=== PATIENT | male | born 1950 | race Two or more races ===

== ENCOUNTER 2017-08-07 11:51 | Outpatient (CLI) | payer OTHER | END 2017-08-07 13:12 | disposition home or self-care (01) | LOC: SONOGRAMA 11:51 | DX: M25.552 Pain in left hip (principal) ==

== ENCOUNTER 2018-06-13 16:26 | Outpatient (CLI) | payer OTHER | END 2018-06-13 18:00 | disposition home or self-care (01) | LOC: RAD 16:26 | DX: S92.302A Fracture of unspecified metatarsal bone(s), left foot, initial encounter for closed fracture (principal) ==

== ENCOUNTER 2018-07-02 11:12 | Outpatient (CLI) | payer OTHER | END 2018-07-02 14:59 | disposition home or self-care (01) | LOC: RAD 11:12 | DX: S92.325A Nondisplaced fracture of second metatarsal bone, left foot, initial encounter for closed fracture (principal) ==

== ENCOUNTER 2018-07-28 08:42 | Outpatient (CLI) | payer OTHER | END 2018-07-28 08:46 | disposition home or self-care (01) | LOC: RAD 08:42 | DX: S92.325A Nondisplaced fracture of second metatarsal bone, left foot, initial encounter for closed fracture (principal) ==

== ENCOUNTER 2018-10-17 11:33 | Emergency (ER) | payer OTHER ==
[~2018-10-17] VITALS: Ht 182.9 cm; Wt 85.3 kg
[2018-10-17] MEDS ORDERED: COZAAR100 MG (11:54)
[2018-10-17] MEDS ORDERED: augmentin PO (12:37)
== END 2018-10-17 13:04 | disposition home or self-care (01) ==
LOC: ER 11:33
DX: S61.221A Laceration with foreign body of left index finger without damage to nail, initial encounter (principal); W27.2XXA Contact with scissors, initial encounter; Y93.89 Activity, other specified; Y92.89 Other specified places as the place of occurrence of the external cause; Y99.8 Other external cause status

== ENCOUNTER 2018-10-24 09:34 | Emergency (ER) | payer OTHER ==
[~2018-10-24] VITALS: Ht 182.9 cm; Wt 85.3 kg
[~2018-10-24 09:34] MED LIST: COZAAR100 MG; augmentin PO
== END 2018-10-24 10:50 | disposition home or self-care (01) ==
LOC: ER 09:34
DX: Z48.02 Encounter for removal of sutures (principal)